=== PATIENT | female | born 1955 | race Caucasian/White ===

== ENCOUNTER 2017-09-10 13:50 | Outpatient (RCR) | payer OTHER | END 2017-10-16 | disposition home or self-care (01) | LOC: WSOH | DX: S80.02XA Contusion of left knee, initial encounter (principal); W01.0XXA Fall on same level from slipping, tripping and stumbling without subsequent striking against object, initial encounter; Y93.01 Activity, walking, marching and hiking; Y92.59 Other trade areas as the place of occurrence of the external cause; Y99.0 Civilian activity done for income or pay; Z79.1 Long term (current) use of non-steroidal anti-inflammatories (NSAID) ==

== ENCOUNTER 2017-10-23 13:40 | Outpatient (RCR) | payer OTHER | END 2017-11-07 10:38 | disposition home or self-care (01) | LOC: WSOH 13:40 | DX: S80.02XD Contusion of left knee, subsequent encounter (principal); S82.002D Unspecified fracture of left patella, subsequent encounter for closed fracture with routine healing; W01.0XXD Fall on same level from slipping, tripping and stumbling without subsequent striking against object, subsequent encounter; Y92.59 Other trade areas as the place of occurrence of the external cause; Y99.0 Civilian activity done for income or pay ==

== ENCOUNTER → 2023-04-26 | Outpatient (CLI) | payer MEDICARE ==
[~2023-04-26] MED LIST: Barium Sulfate 2% Oral Susp 450 ML X 2 BOTTLES PO SCH; Iohexol 300 - 100 ML VIAL IV ONE; NS 100 ML IV SCH
== END ==
LOC: COL.RAD 13:18
DX: R91.1 Solitary pulmonary nodule (principal); C18.1 Malignant neoplasm of appendix
CPT/HCPCS: Q9967

== ENCOUNTER 2023-06-07 05:51 | Day surgery (SDC) | payer MEDICARE ==
[~2023-06-07] VITALS: Ht 157.5 cm; Wt 76.5 kg
[~2023-06-07 05:51] MED LIST changes: -Barium Sulfate 2% Oral Susp 450 ML X 2 BOTTLES PO SCH; -Iohexol 300 - 100 ML VIAL IV ONE; +LR 1,000 ML IV SCH; -NS 100 ML IV SCH; +Ondansetron 4 MG/2 ML VIAL IV PRN
[2023-06-07] MEDS ORDERED: VOLTAREN GEL 1%1 TU TP (08:16)
[2023-06-07 08:24] VITALS: BP 126/87; PULSE 73; TEMP 97.8
[2023-06-07] MEDS ORDERED: Lidocaine PF 2% (20 MG/ML) 5 ML VIAL ONE (09:01)
--- NOTE | 2023-06-07 09:15 | NUR ---
PATIENT WAS ADMITTED TO [facility] ACCOMPANIED BY SPOUSE LUIS M. PATIENT SPEAKS MINIMAL TOGOLESE AND SPOUSE TRANSLATES. OFFERED VOYCE AND THEY DECLINE. SPOUSE WISHES TO TRANSLATE FOR HER AND HE STATES THAT SHE DOES UNDERSTAND SOME TOGOLESE. DECLINATION DECLINED.
[2023-06-07 09:35] VITALS: BP 111/77; PULSE 62
[2023-06-07 09:45] VITALS: BP 129/83; PULSE 64
[2023-06-07 10:00] VITALS: BP 131/87; PULSE 63
--- NOTE | 2023-06-07 10:16 | NUR ---
PT ARRIVED BACK TO ROOM @ 0935 FROM UPPER GI ENDOSCOPY AND COLONOSCOPY; ENDOSCOPY WAS NEGATIVE; COLONOSCOPY ONLY HAD ONE POLYP FOUNDED THAT WAS REMOVED AND SENT FOR BIOPSY. DR. COOPER SPOKE WITH PT TO GO OVER FINDINGS @ 0932. PT WAS A&OX4 UPON AR[facility]AL [facility] AND WAS WALKED TO CHAIR IN ROOM W/ STANDBY ASSIST. PT TOLERATED PO FLUIDS AND FOOD W/O DIFFICULTY OR COMPLAINTS. IV WAS D/C'D @ 0953. PT INSTRUCTIONS AND FINDINGS WERE GONE OVER W/ PT AND @ 0959/1000 BY APPLIANCE MECHANIC, BOTH EXPRESSED UNDERSTANDING W/OUT QUESTIONS. PT WAS DISCHARGED HOME W/ VIA WHEELCHAIR @ 1013
== END 2023-06-07 10:13 | disposition home or self-care (01) ==
LOC: SDCO 05:51
DX: R10.31 Right lower quadrant pain (principal); R10.84 Generalized abdominal pain; K31.89 Other diseases of stomach and duodenum; R11.0 Nausea; K63.5 Polyp of colon; Z80.0 Family history of malignant neoplasm of digestive organs; Z85.038 Personal history of other malignant neoplasm of large intestine; Z85.09 Personal history of malignant neoplasm of other digestive organs; Z92.21 Personal history of antineoplastic chemotherapy; Z90.3 Acquired absence of stomach [part of]; Z90.49 Acquired absence of other specified parts of digestive tract; Z90.411 Acquired partial absence of pancreas; Z85.89 Personal history of malignant neoplasm of other organs and systems
CPT/HCPCS: J2405; J2704; J7120